=== PATIENT | male | born 1995 ===

== ENCOUNTER 2016-05-17 13:44 | Emergency (ER) | payer OTHER ==
[~2016-05-17] VITALS: Ht 170.2 cm; Wt 73.8 kg
[~2016-05-17 13:44] MED LIST: [UNRECOGNIZED DRUG - REMARK] PO
[2016-05-17 13:50] VITALS: BP 147/74; PULSE 68; TEMP 37; O2SAT 97; Ht 170.2 cm; Wt 73.8 kg
[2016-05-17] MEDS ORDERED: IBUPROFEN 600 MG TAB PO STA (13:56)
--- NOTE | 2016-05-17 14:21 | DIAGNOSTIC IMAGING REPORT ---
ADDENDUM Addendum to correct laterality in the impression IMPRESSION: Small age-indeterminate nondisplaced fracture at the LEFT triquetral bone. Electronically signed by: North Aparicio M.D. 05/19/2016 10:17 AM Dictated Date/Time: 05/19/2016 10:10 AM ORIGINAL REPORT LEFT WRIST 5 VIEWS HISTORY: Fall. Left wrist pain. COMPARISON: Left wrist 06/16/2013. FINDINGS: Best seen on the oblique view there appears to be a small nondisplaced fracture at the triquetral bone. This is age indeterminate. The scaphoid appears intact. There are old, healed distal radius and ulnar styloid fractures. Mild soft tissue swelling. No radiopaque foreign bodies. IMPRESSION: Small age-indeterminate nondisplaced fracture at the right triquetral bone. Electronically signed by: North Aparicio M.D. 05/17/2016 2:20 PM Dictated Date/Time: 05/17/2016 2:16 PM
--- NOTE | 2016-05-18 13:03 | EMERGENCY ROOM VISIT NOTE ---
ED Visit Note First contact with patient: 13:50 Chief Complaint: I think I broke my left wrist. History of Present Illness: Mr. Lucia is a 20-year-old white male who ambulates into the ED complaining of left wrist pain over the distal radius. Patient reports he has a history of a previous fracture of the left wrist from 2 years ago but does not remember specifically what well was broken in a sports related injury. Patient reports he was snowboarding approximately 28 hours ago, slipped and fell off his board onto his outstretched left wrist. He reports initially he was having pain over the distal ulna but overnight his pain worsened in intensity and is now currently over the distal radius and in the anatomical snuffbox. He describes his pain as a throbbing sensation. He rates his discomfort 4/10. His pain is nonradiating. His pain worsens with palpation and flexion and extension of the wrist. He has not identified any alleviating factors related to the pain. He has not taken any medications for pain prior to arrival at the hospital. He denies any associated symptoms including shoulder pain, elbow pain, forearm pain, arm/hand weakness/numbness/tingling. Review of Systems: As noted above in history of present illness. Past Medical History: Status post appendectomy. Current Medications: Patient denies. Allergies to Medications: Patient denies. Social History: Patient is not employed; he feels safe in his home environment; he denies tobacco use and admits to alcohol use. Physical Examination: Vital Signs: Date Time Temp Pulse Resp B/P Pulse Ox O2 Delivery O2 Flow Rate FiO2 05/17/16 13:50 37.0 68 16 147/74 97 Room Air GENERAL: 20-year-old male in mild distress due to pain, nontoxic-appearing, afebrile and hemodynamically stable. NEUROLOGICAL: Awake, alert and oriented to person, place and time. Answering questions appropriately and following commands. Good hand eye coordination. No focal motor sensory deficits. SKIN: Warm, dry and pink. No soft tissue trauma noted. LEFT UPPER EXTREMITY: No gross bony deformities. No tenderness throughout the shoulder, elbow or proximal forearm. Mild tenderness over the distal radius and in the anatomical snuffbox without bony deformity. There is mild swelling but no ecchymosis. No tenderness throughout the hand and fingers. Full range of motion in flexion and extension of the elbow, mild decrease range of motion in pronation of the forearm, full range of motion in flexion, extension and radial deviation of the wrist. Throughout the hand the skin was warm and pink and capillary refill is brisk. He is able to distinguish light sensations through all dermatomes. ED Course: Patient is assessed as noted above. Patient was given 600 mg of ibuprofen and ice for pain and swelling. Left wrist x-ray with navicular view: Was read by myself and the radiologist and shows a small age indeterminate nondisplaced fracture of the right triquetral carpal. Patient was placed in a Ortho-Glass lacer splint. Patient was educated about tonight's findings and instructed on his treatment plan; he verbalizes understanding and agreement with this plan. Clinical Impression: Left triquetral carpal fracture. Disposition: Patient discharged home in stable condition; prior to departure he was reassessed and subjectively reported he was feeling the same. Plan: Comfort measures including rest, ice, splint use and ibuprofen/acetaminophen use were discussed with the patient. Patient was encouraged to follow-up with orthopedics for specialty care and treatment. Patient was encouraged return ED for worsening/uncontrolled pain, uncontrolled swelling, hand weakness/numbness/tingling or any new/concerning symptoms.
== END 2016-05-17 15:05 | disposition home or self-care (01) ==
LOC: C.EDB 13:46 → C.EDD 15:05
DX: S62.115A Nondisplaced fracture of triquetrum [cuneiform] bone, left wrist, initial encounter for closed fracture (principal); Z87.81 Personal history of (healed) traumatic fracture; V00.311A Fall from snowboard, initial encounter; Y93.23 Activity, snow (alpine) (downhill) skiing, snowboarding, sledding, tobogganing and snow tubing